=== PATIENT | male | born 1940 | race African-American/Black ===

== ENCOUNTER 2018-07-15 06:13 | Inpatient (IN) | payer MEDICARE, MEDICAID ==
[~2018-07-15] VITALS: Ht 188 cm; Wt 78.5 kg
[~2018-07-15 06:13] MED LIST: BREO ELIPTA; IBUPROFEN 200 MG; KETOCONAZOLE 2%; LOSA1TAB9 PO; TAMS0.4C31 PO; VIAG50 PO
[2018-07-15 06:44] VITALS: BP 131/67
[2018-07-15 08:00] VITALS: BP 127/63
[2018-07-15] MEDS ORDERED: CLONIDINE 0.1MG TABLET PO PRN (08:30)
[2018-07-15] MEDS ORDERED: ONDANSETRON HCL 4MG/2ML INJ IV PRN (08:30)
[2018-07-15] MEDS ORDERED: ACETAMINOPHEN 325MG TABLET PO PRN (08:30)
[2018-07-15] MEDS ORDERED: MORPHINE SULFATE 4 MG/ML CPJ (NOT FOR IM USE) IV PRN (08:30)
[2018-07-15 09:00] VITALS: BP 127/63
[2018-07-15] MEDS ORDERED: FLUTICASONE/VILANTEROL 200-25 BLST.W.DEV ORI SCH (09:00)
[2018-07-15 09:30] LABS: BASOPHILS % 0.4 % (0.0-2.0); EOSINOPHILS % 3.1 % (0.0-5.0); HEMATOCRIT. 37.9 % (42.0-52.0); HEMOGLOBIN. 12.9 g/dL (14.0-18.0); LYMPHOCYTES % 25.1 % (20.0-50.0); MEAN CORPUSCULAR VOLUME 94.1 fL (80.0-94.0); MEAN PLATELET VOLUME 7.3 fl (7.4-10.4); MONOCYTES % 8.7 % (2.0-8.0); NEUTROPHILS % 62.7 % (40.0-76.0); PLATELET 196 x1000/uL (130-400); RED BLOOD CELL COUNT 4.03 mill/uL (4.7-6.1)
[2018-07-15] MEDS: SODIUM CHLORIDE 0.45% 1,000 ML IV SCH (09:30)
[2018-07-15 09:49] LABS: CHLORIDE 108 mEq/L (98-107)
[2018-07-15 09:50] LABS: PHOSPHORUS 3.7 mg/dL (2.5-4.9)
[2018-07-15 12:00] VITALS: BP 124/75
[2018-07-15] MEDS ORDERED: VANCOMYCIN 1500MG in DEXTROSE 5% WATER 250ML IV NR (12:00)
[2018-07-15] MEDS: ENOXAPARIN 40MG/0.4ML SYR SUBCUT SCH (12:11)
[2018-07-15] MEDS: LOSARTAN POTASSIUM 50 MG TABLET PO SCH (12:15)
[2018-07-15] MEDS: TAMSULOSIN HCL 0.4MG SR CAPSULE PO SCH (12:15)
[2018-07-15] MEDS: PIPERACILLIN/TAZ 2.25G PREMIX 50 ML IV SCH ×2 (12:37→21:25)
[2018-07-15] MEDS: BUDESONIDE 0.5MG/2ML NEB HHN SCH ×2 (14:04→21:30)
[2018-07-15] MEDS: IPRATROPIUM/ALBUTEROL 0.5-3(2.5)MG/3ML NEB INH SCH ×3 (14:04→21:31)
[2018-07-15 16:00] VITALS: BP 117/57
[2018-07-15 20:00] VITALS: BP 127/75
[2018-07-15] MEDS: DOCUSATE SODIUM 100MG CAPSULE PO PRN (21:25)
[2018-07-16] VITALS: BP 116/61
[2018-07-16] MEDS: IPRATROPIUM/ALBUTEROL 0.5-3(2.5)MG/3ML NEB INH SCH ×3 (02:32→22:08)
[2018-07-16] MEDS: VANCOMYCIN 1 G PREMIX 200 ML IV SCH ×2 (02:49→12:28)
[2018-07-16 04:00] VITALS: BP 125/66
[2018-07-16] MEDS: PIPERACILLIN/TAZ 2.25G PREMIX 50 ML IV SCH ×3 (04:34→21:23)
[2018-07-16] MEDS: SODIUM CHLORIDE 0.45% 1,000 ML IV SCH ×2 (04:39→17:01)
[2018-07-16 08:00] VITALS: BP 126/62
[2018-07-16] MEDS: BUDESONIDE 0.5MG/2ML NEB HHN SCH ×2 (08:02→22:08)
[2018-07-16 08:45] LABS: CLARITY URINE CLEAR (CLEAR); COLOR URINE YELLOW (YELLOW); KETONES URINE NEGATIVE (NEGATIVE); LEUKOCYTE ESTERASE URINE NEGATIVE (NEGATIVE); NITRITE URINE NEGATIVE (NEGATIVE); OCCULT BLOOD URINE NEGATIVE (NEGATIVE); PROTEIN URINE NEGATIVE (NEGATIVE); SPECIFIC GRAVITY URINE 1.006 (1.005-1.030); UROBILINOGEN URINE 0.2 E.U./dL (0.2-1.0)
[2018-07-16] MEDS: TAMSULOSIN HCL 0.4MG SR CAPSULE PO SCH (09:00)
[2018-07-16] MEDS: LOSARTAN POTASSIUM 50 MG TABLET PO SCH (09:00)
[2018-07-16] MEDS: DOCUSATE SODIUM 100MG CAPSULE PO PRN ×2 (09:00→21:35)
[2018-07-16] MEDS: ENOXAPARIN 40MG/0.4ML SYR SUBCUT SCH (09:01)
[2018-07-16 09:20] LABS: BASOPHILS % 0.3 % (0.0-2.0); EOSINOPHILS % 2.6 % (0.0-5.0); HEMATOCRIT. 35.9 % (42.0-52.0); HEMOGLOBIN. 12.2 g/dL (14.0-18.0); LYMPHOCYTES % 9.9 % (20.0-50.0); MEAN CORPUSCULAR HEMOGLOBIN 32.1 pg (28.0-32.0); MEAN CORPUSCULAR VOLUME 94.6 fL (80.0-94.0); MEAN PLATELET VOLUME 7.9 fl (7.4-10.4); MONOCYTES % 9.3 % (2.0-8.0); NEUTROPHILS % 77.9 % (40.0-76.0); PLATELET 195 x1000/uL (130-400); RED BLOOD CELL COUNT 3.79 mill/uL (4.7-6.1); RED CELL DISTRIBUTION WIDTH 14.7 % (11.6-14.6)
[2018-07-16 09:38] LABS: CHLORIDE 105 mEq/L (98-107)
[2018-07-16 09:51] LABS: PHOSPHORUS 2.8 mg/dL (2.5-4.9)
[2018-07-16 12:00] VITALS: BP 119/67
[2018-07-16 16:00] VITALS: BP 102/54
[2018-07-16 20:00] VITALS: BP 121/70
[2018-07-16] MEDS ORDERED: MAGNESIUM SULFATE 2 GM in DEXTROSE 5% WATER 50 ML IV NR (21:30)
[2018-07-17] VITALS: BP 126/67
[2018-07-17] MEDS: VANCOMYCIN 1 G PREMIX 200 ML IV SCH (00:44)
[2018-07-17] MEDS: IPRATROPIUM/ALBUTEROL 0.5-3(2.5)MG/3ML NEB INH SCH ×5 (02:04→20:05)
[2018-07-17 04:00] VITALS: BP 110/75
[2018-07-17] MEDS: PIPERACILLIN/TAZ 2.25G PREMIX 50 ML IV SCH ×3 (04:47→21:22)
[2018-07-17 07:50] LABS: CHLORIDE 105 mEq/L (98-107)
[2018-07-17 07:52] LABS: BASOPHILS % 0.7 % (0.0-2.0); EOSINOPHILS % 4.1 % (0.0-5.0); HEMATOCRIT. 32.2 % (42.0-52.0); HEMOGLOBIN. 11.1 g/dL (14.0-18.0); LYMPHOCYTES % 16.6 % (20.0-50.0); MEAN CORPUSCULAR HEMOGLOBIN 32.4 pg (28.0-32.0); MEAN PLATELET VOLUME 7.8 fl (7.4-10.4); MONOCYTES % 13.9 % (2.0-8.0); NEUTROPHILS % 64.7 % (40.0-76.0); PLATELET 180 x1000/uL (130-400); RED BLOOD CELL COUNT 3.43 mill/uL (4.7-6.1); RED CELL DISTRIBUTION WIDTH 14.5 % (11.6-14.6)
[2018-07-17] MEDS: BUDESONIDE 0.5MG/2ML NEB HHN SCH ×2 (07:54→20:05)
[2018-07-17 08:00] VITALS: BP 126/57
[2018-07-17] MEDS: LOSARTAN POTASSIUM 50 MG TABLET PO SCH (08:57)
[2018-07-17] MEDS: ENOXAPARIN 40MG/0.4ML SYR SUBCUT SCH (08:58)
[2018-07-17] MEDS: TAMSULOSIN HCL 0.4MG SR CAPSULE PO SCH (08:58)
[2018-07-17] MEDS: DOCUSATE SODIUM 100MG CAPSULE PO PRN (09:01)
[2018-07-17] MEDS ORDERED: NA PHOS,M-B/NA PHOS,DI-BA ENEMA 118ML PR ONE (11:15)
[2018-07-17] MEDS ORDERED: BISACODYL 5MG TABLET PO PRN (11:15)
[2018-07-17] MEDS: VANCOMYCIN 750 MG PREMIX 150 ML IV SCH ×2 (11:44→21:22)
[2018-07-17 12:00] VITALS: BP 123/60
[2018-07-17] MEDS: LACTULOSE 20G/30ML UDC PO SCH ×2 (13:53→21:22)
[2018-07-17 16:00] VITALS: BP 123/60
[2018-07-17 20:00] VITALS: BP 113/58
[2018-07-18] VITALS: BP 126/66
[2018-07-18] MEDS: IPRATROPIUM/ALBUTEROL 0.5-3(2.5)MG/3ML NEB INH SCH ×3 (02:14→19:53)
[2018-07-18 04:00] VITALS: BP 118/68
[2018-07-18] MEDS: PIPERACILLIN/TAZ 2.25G PREMIX 50 ML IV SCH ×3 (05:21→20:00)
[2018-07-18] MEDS: LACTULOSE 20G/30ML UDC PO SCH ×3 (05:22→21:11)
[2018-07-18 06:44] LABS: BASOPHILS % 0.7 % (0.0-2.0); EOSINOPHILS % 3.5 % (0.0-5.0); HEMATOCRIT. 34.1 % (42.0-52.0); HEMOGLOBIN. 11.4 g/dL (14.0-18.0); LYMPHOCYTES % 18.8 % (20.0-50.0); MEAN CORPUSCULAR HEMOGLOBIN 31.7 pg (28.0-32.0); MEAN CORPUSCULAR VOLUME 94.9 fL (80.0-94.0); MEAN PLATELET VOLUME 7.6 fl (7.4-10.4); MONOCYTES % 13.6 % (2.0-8.0); NEUTROPHILS % 63.4 % (40.0-76.0); PLATELET 182 x1000/uL (130-400); RED CELL DISTRIBUTION WIDTH 14.9 % (11.6-14.6)
[2018-07-18 07:16] LABS: CHLORIDE 105 mEq/L (98-107)
[2018-07-18] MEDS: VANCOMYCIN 750 MG PREMIX 150 ML IV SCH ×2 (08:55→20:00)
[2018-07-18] MEDS: BUDESONIDE 0.5MG/2ML NEB HHN SCH (09:00)
[2018-07-18] MEDS: TAMSULOSIN HCL 0.4MG SR CAPSULE PO SCH (09:01)
[2018-07-18] MEDS: LOSARTAN POTASSIUM 50 MG TABLET PO SCH (09:02)
[2018-07-18] MEDS: ENOXAPARIN 40MG/0.4ML SYR SUBCUT SCH (09:03)
[2018-07-18 12:00] VITALS: BP 134/70
[2018-07-18 16:00] VITALS: BP 147/75
[2018-07-18 20:00] VITALS: BP 130/69
[2018-07-19] VITALS: BP 138/68
[2018-07-19] MEDS: IPRATROPIUM/ALBUTEROL 0.5-3(2.5)MG/3ML NEB INH SCH ×2 (01:44→09:33)
[2018-07-19 04:00] VITALS: BP 146/76
[2018-07-19] MEDS: PIPERACILLIN/TAZ 2.25G PREMIX 50 ML IV SCH ×2 (04:53→11:55)
[2018-07-19] MEDS: LACTULOSE 20G/30ML UDC PO SCH ×2 (05:01→13:05)
[2018-07-19 07:19] LABS: BASOPHILS % 0.3 % (0.0-2.0); HEMOGLOBIN. 11.7 g/dL (14.0-18.0); LYMPHOCYTES % 12.8 % (20.0-50.0); MEAN CORPUSCULAR HEMOGLOBIN 32.5 pg (28.0-32.0); MEAN CORPUSCULAR VOLUME 94.6 fL (80.0-94.0); MEAN PLATELET VOLUME 7.6 fl (7.4-10.4); MONOCYTES % 12.1 % (2.0-8.0); NEUTROPHILS % 71.8 % (40.0-76.0); PLATELET 182 x1000/uL (130-400); RED CELL DISTRIBUTION WIDTH 14.9 % (11.6-14.6)
[2018-07-19 07:45] LABS: CHLORIDE 104 mEq/L (98-107)
[2018-07-19 08:00] VITALS: BP 145/77
[2018-07-19] MEDS: VANCOMYCIN 750 MG PREMIX 150 ML IV SCH (08:27)
[2018-07-19] MEDS: TAMSULOSIN HCL 0.4MG SR CAPSULE PO SCH (08:28)
[2018-07-19] MEDS: ENOXAPARIN 40MG/0.4ML SYR SUBCUT SCH (08:28)
[2018-07-19] MEDS: LOSARTAN POTASSIUM 50 MG TABLET PO SCH (08:29)
[2018-07-19 11:02] VITALS: BP_SYST 112; BP_SYST 145; BP_DIAS 65; BP_DIAS 77
[2018-07-19 12:00] VITALS: BP 112/65
[2018-07-19] MEDS ORDERED: INFLUENZA VIRUS VACCINE(AFLURIA) 0.5ML SYR IM ONE (13:20)
[2018-07-19] MEDS ORDERED: PNEUMOCOCCAL 23-VAL P-SAC VAC 0.5 ML IM ONE (13:20)
[2018-07-19 16:00] VITALS: BP 114/58
== END 2018-07-19 16:20 | disposition home or self-care (01) | DRG 593 ==
LOC: 6EST 06:13
PROVIDERS: ADMIT Internal Medicine Nephrology; ATTEND Internal Medicine Nephrology
DX: L97.529 Non-pressure chronic ulcer of other part of left foot with unspecified severity (principal); N39.0 Urinary tract infection, site not specified; M21.42 Flat foot [pes planus] (acquired), left foot; N52.9 Male erectile dysfunction, unspecified; I10 Essential (primary) hypertension; I73.9 Peripheral vascular disease, unspecified; M14.672 Charcot's joint, left ankle and foot; K59.00 Constipation, unspecified; J44.9 Chronic obstructive pulmonary disease, unspecified; L60.3 Nail dystrophy; Z85.048 Personal history of other malignant neoplasm of rectum, rectosigmoid junction, and anus; Z85.46 Personal history of malignant neoplasm of prostate; Z89.411 Acquired absence of right great toe; Z71.41 Alcohol abuse counseling and surveillance of alcoholic; Z72.89 Other problems related to lifestyle
CPT/HCPCS: 36415; 71045; 73721; 74176; 80048; 80202; 83735; 84100; 84484; 85651; 90686; 90732; 93306; 93970; 94640; 97161; 97165; J1650; J2543; J3370; J3475; J7040; J7060; J7620; J7626